=== PATIENT | male | born 1980 | race African-American/Black ===

== ENCOUNTER 2016-12-16 11:58 | Emergency (ER) | payer BC ==
[2016-12-16 12:14] VITALS: BP 142/84; PULSE 102; TEMP 99.3; BMI 29.6
--- NOTE | 2016-12-16 12:29 | PDOC ---
History of Present Illness - General Chief Complaint: Cold Symptoms Stated Complaint: SORE THROAT Time Seen by Provider: 12/16/16 12:26 History Source: Patient Exam Limitations: No Limitations - History of Present Illness Initial Comments: CHIEF COMPLAINT: 36 y/o afebrile male with no significant PMH c/o sore throat and cough for the past few days. HISTORY OF PRESENT ILLNESS: The patient states his throat hurts when he swallows and when he coughs. He denies f/c, n/v/d, CP, SOB, abd pain. Vital signs on arrival are notable for pulse of 102. REVIEW OF SYSTEMS: GENERAL/CONSTITUTIONAL: No fever/chills. No weakness. No weight change. HEAD, EYES, EARS, NOSE AND THROAT: No change in vision. No ear pain or discharge. +sore throat. CARDIOVASCULAR: No chest pain or shortness of breath. RESPIRATORY: +dry cough. No wheezing, or hemoptysis. GASTROINTESTINAL: no abd pain, nausea, vomiting, diarrhea. GENITOURINARY: No dysuria, frequency, or change in urination. MUSCULOSKELETAL: No joint or muscle swelling or pain. No neck or back pain. SKIN: No rash or easy bruising. NEUROLOGIC: No headache, vertigo, loss of consciousness, or loss of sensation. PHYSICAL EXAM: GENERAL: The patient is awake, alert, and fully oriented, in no acute distress. He has an intermittent dry cough. HEAD: Normal with no signs of trauma. ENT: Pupils equal, round and reactive to light, extraocular movements intact, sclera anicteric, conjunctiva clear. Posterior pharyngeal erythema without tonsilar edema or exudate. Uvula midline. No soft/hard palate deformities. Pt can handle his own secretions without difficulty. LUNGS: Clear to auscultation bilaterally. Normal excursion. No respiratory distress or use of accessory muscles. CV: RRR, S1/S2, no MRG. Cap refill < 2 sec. ABDOMEN: Soft, non-distended, non-tender even to deep palpation, no hepatomegaly or splenomegaly, no masses. EXTREMITIES: Normal range of motion, no edema. NEUROLOGICAL: Normal speech, normal gait. CN II-XII grossly intact. PSYCH: Normal mood, normal affect. SKIN: Warm, dry, normal turgor, no rashes or lesions noted. Past History - Past Medical History Allergies/Adverse Reactions: Allergies Allergy/AdvReac Type Severity Reaction Status Date / Time No Known Allergies Allergy Verified 12/16/16 12:11 Home Medications: Ambulatory Orders NK [No Known Home Medication] 12/16/16 Other medical history: DENIES. - Immunization History Immunization Up to Date: Yes - Psycho/Social/Smoking Cessation Hx Anxiety: No Suicidal Ideation: No Smoking History: Never smoked Number of Cigarettes Smoked Daily: 0 Cigars Per Day: 0 Hx Alcohol Use: No Drug/Substance Use Hx: No Substance Use Type: Alcohol *Physical Exam - Vital Signs Last Vital Signs Temp Pulse Resp BP Pulse Ox 99.3 F 102 H 19 142/84 96 12/16/16 12:11 12/16/16 12:11 12/16/16 12:11 12/16/16 12:11 12/16/16 12:11 Medical Decision Making - Medical Decision Making A/P: 36 y/o male with cough and pharyngitis. Plan is as follows: 1. Rapid strep 2. IM decadron Rapid strep - negative The patient states he feels better after decadron. Will discharge to home with supportive care instructions. Pt instructed to return to the ER with any worsening or concerning symptoms. The patient verbalizes understanding of all instructions, has no further questions and is awaiting discharge. *DC/Admit/Observation/Transfer Diagnosis at time of Disposition: Pharyngitis Qualifiers: Pharyngitis/tonsillitis etiology: unspecified etiology Qualified Code(s): J02.9 - Acute pharyngitis, unspecified - Discharge Dispostion Disposition: HOME Condition at time of disposition: Improved - Patient Instructions Printed Discharge Instructions: Sore Throat Additional Instructions: Discharge Instructions: -Gargle with warm salt water to help with sore throat -Take 600mg of Motrin every 6 hours for pain -Eat soft/cold foods until symptoms improve -Return to the ER with any worsening or concerning symptoms. - Post Discharge Activity Work/School Note: Back to Work
[2016-12-16] MEDS ORDERED: DEXAMETHASONE SOD PHOSPHATE 10 MG/1 ML VIAL IM ONE (12:56)
[2016-12-16] MEDS ORDERED: DEXAMETHASONE SOD PHOSPHATE 10 MG/1 ML VIAL ONE (12:58)
== END 2016-12-16 14:26 | disposition home or self-care (01) ==
LOC: JERFT 11:58
PROC: 3E0233Z Introduction of Anti-inflammatory into Muscle, Percutaneous Approach (ICD-10-PCS; principal; 2016-12-16)
DX: J02.9 Acute pharyngitis, unspecified (principal)
CPT/HCPCS: 87070; 87430; 99281-25

== ENCOUNTER 2019-05-05 11:50 | Emergency (ER) | payer BC, OTHER ==
[2019-05-05 12:05] VITALS: BP 137/53; PULSE 104; TEMP 100.8; BMI 30.4
--- NOTE | 2019-05-05 12:14 | PDOC ---
History of Present Illness - General Chief Complaint: Headache Stated Complaint: HEADACHE WEAK CRAMPY ABDOMINAL PAIN Time Seen by Provider: 05/05/19 11:55 - History of Present Illness Initial Comments: 05/05/19 15:27 Chief complaint: Abdominal pain, nausea, diarrhea History of present illness: Symptom onset Friday. Saw urgent care on Friday and was went on Flagyl and Cipro. Since then his original symptoms have subsided, but he has had mild nausea and a headache correlated with administration of his antibiotics. He is eating well. No subsequent vomiting or diarrhea. Review of systems: Otherwise negative Past medical history: Healthy male, no active medical problems. No home medications Social/family history reviewed and noncontributory Physical exam: Alert and oriented well-developed well-nourished no acute distress cheerful and cooperative Afebrile, vital signs normal No pallor or icterus. Wet mucous membranes and good skin turgor HEENT clear Neck supple without bruit mass or nodes Lungs clear CV regular without murmur rub or gallop Abdomen soft nontender without mass or organomegaly. Normal bowel sounds. Nondistended. Impression: Viral gastroenteritis, with superimposed GI side effects of antibiotics Plan: DC antibiotics. Bowel rest, hydration, return to ER if symptoms worsen, otherwise follow-up primary physician. Past History - Past Medical History Allergies/Adverse Reactions: Allergies Allergy/AdvReac Type Severity Reaction Status Date / Time No Known Allergies Allergy Verified 05/05/19 11:52 Home Medications: Ambulatory Orders Ciprofloxacin [Cipro (Restricted To Id)] 500 mg PO Q12H 05/05/19 Metronidazole 500 mg PO BID 05/05/19 COPD: No Other medical history: DENIES - Immunization History Immunization Up to Date: Yes - Suicide/Smoking/Psychosocial Hx Smoking History: Current some day smoker Number of Cigarettes Smoked Daily: 0 Cigars Per Day: 0 Information on smoking cessation initiated: No Hx Alcohol Use: No Drug/Substance Use Hx: No Substance Use Type: Alcohol *Physical Exam - Vital Signs Last Vital Signs Temp Pulse Resp BP Pulse Ox 100.8 F H 104 H 18 137/53 L 97 05/05/19 11:52 05/05/19 11:52 05/05/19 11:52 05/05/19 11:52 05/05/19 11:52 *DC/Admit/Observation/Transfer Diagnosis at time of Disposition: Viral gastroenteritis - Discharge Dispostion Disposition: HOME Condition at time of disposition: Stable Decision to Admit order: No - Referrals - Patient Instructions Printed Discharge Instructions: DI for Viral Gastroenteritis -- Adult - Post Discharge Activity
== END 2019-05-05 12:27 | disposition home or self-care (01) ==
LOC: FER 11:50
DX: A08.4 Viral intestinal infection, unspecified (principal); F17.210 Nicotine dependence, cigarettes, uncomplicated
CPT/HCPCS: 99283-25

== ENCOUNTER 2020-05-18 18:27 | Emergency (ER) | payer OTHER ==
[2020-05-18 18:39] VITALS: BP 133/82; PULSE 77; TEMP 98.6; BMI 31.1
--- NOTE | 2020-05-18 18:42 | PDOC ---
History of Present Illness - General Chief Complaint: Pain Stated Complaint: LEFT SHOULDER PAIN History Source: Patient Exam Limitations: No Limitations - History of Present Illness Initial Comments: 05/18/20 18:37 39 yo male with no pmhx here c/o left sided shoulder pain side pain. has had for 5 - 6 days. took tylenol no relief. no new numbness or weakness. no sob. no h/o pe or dvt. no sob. no cough. no trauma. pain worse with certain movements also feels spasm sensation in his bicep on left arm. Past History - Medical History Allergies/Adverse Reactions: Allergies Allergy/AdvReac Type Severity Reaction Status Date / Time No Known Allergies Allergy Verified 05/18/20 18:29 Home Medications: Ambulatory Orders NK [No Known Home Medication] 05/18/20 COPD: No - Immunization History Immunization Up to Date: Yes - Psycho-Social/Smoking History Smoking History: Never smoked Have you smoked in the past 12 months: No Number of Cigarettes Smoked Daily: 0 Cigars Per Day: 0 Review of Systems - Review of Systems Constitutional: No: Chills HEENTM: No: Eye Pain Respiratory: No: Cough, Orthopnea, Shortness of Breath Cardiac (ROS): No: Chest Pain, Edema Musculoskeletal: Yes: Joint Pain, Muscle Pain Integumentary: No: Bruising, Change in Color Neurological: No: Headache, Numbness, Paresthesia Psychiatric: No: Stressors, Sleep Pattern Change All Other Systems: Reviewed and Negative *Physical Exam - Physical Exam 05/18/20 18:38 awake alert lungs clear bilat heart rrr no mrg left shoulder trapezial spasm noted. no midline spinal tenderness. shoulder from. bicep soft nt no appreciated swelling. from at left elbow. nuero 5/5 bilat upper ext strength. sensatio intact throught upper ext. ED Treatment Course - RADIOLOGY Radiology Studies Ordered: Category Date Time Status SHOULDER-LEFT [RAD] Stat Radiology 05/18/20 18:30 Ordered Medical Decision Making - Medical Decision Making 05/18/20 18:39 39 yo male with left trapezial spasm. c/o sxs of muscle spasm in left bicep. no appreciated swelling or edema. plan xray shoulder r/o djd, likely dc home nsaids. dgx muscle spasm. Discharge - Discharge Information Problems reviewed: Yes Clinical Impression/Diagnosis: Muscle spasm, Shoulder pain Condition: Improved Disposition: HOME - Admission No - Follow up/Referral Referrals: Jorgito Plunkett [Primary Care Provider] - Van Bautista MD [Staff Physician] - - Patient Discharge Instructions Patient Printed Discharge Instructions: DI for Muscle Spasm Additional Instructions: your xrays of your left shoulder is negative for any bony fracture or abnormality. it is possible you have spasm in the muscle in your left trapezius and bicep. you should take motrin 600 mg every 8 hours as needed for pain or advil 600mg. return for any weakness, swelling. shortness of breath or any concerns. you can follow up with a orthopedist for pain beyond 1 weeks. call to schedule. see referral for dr Bautista. - Post Discharge Activity
[2020-05-18] MEDS ORDERED: IBUPROFEN 600 MG TABLET (FP) PO ONE ×2 (18:44→18:47)
== END 2020-05-18 19:01 | disposition home or self-care (01) ==
LOC: FER 18:27
DX: M25.512 Pain in left shoulder (principal); M62.838 Other muscle spasm
CPT/HCPCS: 73030-TC-LT-FY; 99283-25